=== PATIENT | male | born 1980 | race Caucasian/White ===

== ENCOUNTER → 2018-03-03 | Outpatient (CLI) | payer SELFPAY | LOC: RAD 08:42 | PROVIDERS: ATTEND Nurse Practitioner Family | DX: M25.561 Pain in right knee (principal); Z53.8 Procedure and treatment not carried out for other reasons ==

== ENCOUNTER → 2018-03-07 | Outpatient (CLI) | payer OTHER ==
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
== END | disposition home or self-care (01) ==
LOC: RAD 16:12
PROVIDERS: ATTEND Nurse Practitioner Family
DX: S83.411A Sprain of medial collateral ligament of right knee, initial encounter (principal); S70.11XA Contusion of right thigh, initial encounter
CPT/HCPCS: 73721

== ENCOUNTER → 2019-01-22 | Outpatient (CLI) | payer BC, OTHER ==
[~2019-01-22] MED LIST: CATHETER FLUSH 10 ML SYR IV PRN; HOLD METFORMIN - RECEIVED CONTRAST 20 ML VIAL IV SCH; IOHEXOL 350 MG/ML 100 ML (OMNIPAQUE 350) VIAL IV ONE; NS 100 ML (IVPB) BAG IV ONE
--- NOTE | 2019-01-22 16:50 | Diagnostic Imaging Report ---
PROCEDURE: CT pelvis with contrast. TECHNIQUE: Oral and intravenous contrast were administered with pelvic CT performed. Auto Exposure Controls were utilized during the CT exam to meet ALARA standards for radiation dose reduction. INDICATION: Dysuria. FINDINGS: The bowel gas pattern is nonspecific. Bladder is grossly normal in appearance. There is no pelvic mass, adenopathy or free fluid. There is no ascites. No focal inflammatory changes. There are mild degenerative changes in the spine. IMPRESSION: Unremarkable limited CT pelvis. Dictated by: Dictated on workstation # [id number]
--- NOTE | 2019-01-22 20:05 | Diagnostic Imaging Report ---
INDICATION: Dysuria, history of orchiopexy. FINDINGS: Areas of left-sided scrotal skin distortion are unchanged from prior. Given the history, this may be scarring from prior surgery. Testicular parenchyma itself appears unremarkable bilaterally. No evidence for testicular mass, torsion, or orchitis. An incidental left-sided epididymal head cyst is 1.4 cm. IMPRESSION: Intrascrotal contents unremarkable with benign epididymal head cyst. Areas of scrotal skin distortion on the left superiorly are unchanged from prior and probably scarring given previous surgery. There is no obvious change when compared with exam performed in 2009. Dictated by: Dictated on workstation # [id number]
== END ==
LOC: RAD 14:20
PROVIDERS: ATTEND Nurse Practitioner Community Health
DX: A63.0 Anogenital (venereal) warts (principal); N50.3 Cyst of epididymis
CPT/HCPCS: 72193; 76870

== ENCOUNTER → 2019-02-06 | Outpatient (CLI) | payer BC ==
[2019-02-06 16:15] LABS: BILIRUBIN,URINE NEGATIVE (NEGATIVE); CLARITY,URINE SLIGHTLY CLOUDY; COLOR,URINE YELLOW; GLUCOSE, URINE (UA) NEGATIVE (NEGATIVE); KETONES,URINE NEGATIVE (NEGATIVE); LEUKOCYTE ESTERASE ,URINE NEGATIVE (NEGATIVE); NITRITE,URINE NEGATIVE (NEGATIVE); PH,URINE 7 (5-9); PROTEIN,URINE NEGATIVE (NEGATIVE); UROBILINOGEN,URINE NORMAL (NORMAL)
[2019-02-06 16:40] LABS: AMORPHOUS SEDIMENT,UR LARGE AMOR PHOSPHATE /LPF; BACTERIA,URINE NEGATIVE /HPF; RBC,URINE RARE /HPF
== END ==
LOC: LAB 15:44
PROVIDERS: ATTEND Urology
DX: N41.9 Inflammatory disease of prostate, unspecified (principal); N46.9 Male infertility, unspecified
CPT/HCPCS: 81000

== ENCOUNTER → 2019-05-27 | Outpatient (CLI) | payer BC ==
--- NOTE | 2019-05-27 12:11 | Diagnostic Imaging Report ---
EXAMINATION: Magnetic resonance imaging of the left knee without intravenous contrast. DATE: May 27, 2019. COMPARISON: None. INDICATION: 38-year-old male, left knee pain. TECHNIQUE: Multiplanar, multisequence noncontrast enhanced MR imaging was accomplished. FINDINGS: MENISCI: There is a multidirectional complex tear involving the body and posterior horn of the medial meniscus extending near the posterior root attachment. The tear includes involvement of the very peripheral aspect of the body and posterior horn of the medial meniscus. There is no associated parameniscal cyst. There is no medial meniscal extrusion. The lateral meniscus is intact. LIGAMENTS AND TENDONS: The anterior and posterior cruciate ligaments are intact. The medial collateral ligament is intact. The iliotibial band, mid third lateral capsular ligament, fibular collateral ligament, biceps femoris tendon, and conjoined tendon are intact. The quadriceps tendon and patella ligament are intact. JOINT: There is a cartilage fissure involving the very posterior margin of the lateral femoral condyle with a small underlying subchondral cyst. The additional articular cartilage is intact. There is a trace knee joint effusion without intra-articular body or synovitis. BONE: There is edema-like signal in the medial aspect of the medial tibial plateau and adjacent medial femoral condyle, most likely reflecting small bone contusions. The additional bone marrow signal is unremarkable. BURSAE AND SOFT TISSUES: There is minimal fluid in the popliteal fossa without sizable Hunter's cyst. There is nonspecific subcutaneous edema medially near the level of the femorotibial articulation which could relate to a soft tissue contusion. IMPRESSION: 1. Complex multidirectional tear involving the body and posterior horn of the medial meniscus without parameniscal cyst or medial meniscal extrusion. 2. Intact lateral meniscus. 3. Intact anterior and posterior cruciate ligaments. Additional ligaments and tendons are intact. 4. Very minimal lateral compartment osteoarthritis. Trace knee joint effusion without synovitis or intra-articular body. 5. Very small bone contusions involving the medial aspects of the medial tibial plateau and adjacent medial femoral condyle. Dictated by: Dictated on workstation # [id number]
== END ==
LOC: RAD 07:37
PROVIDERS: ATTEND Nurse Practitioner Community Health
DX: S83.232A Complex tear of medial meniscus, current injury, left knee, initial encounter (principal); S80.12XA Contusion of left lower leg, initial encounter; G89.29 Other chronic pain; M25.462 Effusion, left knee; X58.XXXA Exposure to other specified factors, initial encounter
CPT/HCPCS: 73721

== ENCOUNTER → 2019-05-27 | Outpatient (CLI) | payer BC ==
--- NOTE | 2019-05-27 08:16 | Diagnostic Imaging Report ---
INDICATION: Pre-MRI screening. Time of exam: 8:07 AM No radiopaque orbital foreign bodies are detected. IMPRESSION: No radiopaque orbital foreign bodies are detected. Dictated by: Dictated on workstation # [id number]
== END ==
LOC: RAD 07:52
PROVIDERS: ATTEND Pediatrics
DX: Z01.818 Encounter for other preprocedural examination (principal); G89.29 Other chronic pain

== ENCOUNTER 2020-11-10 05:40 | Outpatient (CLI) | payer BC ==
[~2020-11-10] VITALS: Ht 182.9 cm; Wt 98.8 kg
== END 2020-11-10 14:35 | disposition home or self-care (01) ==
LOC: PREOP 05:40
PROVIDERS: ATTEND Surgery
DX: Z01.818 Encounter for other preprocedural examination (principal)

== ENCOUNTER 2020-12-22 12:46 | Emergency (ER) | payer OTHER ==
[~2020-12-22] VITALS: Ht 182 cm; Wt 100.0 kg
[2020-12-22 13:35] LABS: BILIRUBIN,URINE NEGATIVE (NEGATIVE); CLARITY,URINE CLEAR; COLOR,URINE YELLOW; GLUCOSE, URINE (UA) NEGATIVE (NEGATIVE); KETONES,URINE NEGATIVE (NEGATIVE); LEUKOCYTE ESTERASE ,URINE NEGATIVE (NEGATIVE); NITRITE,URINE NEGATIVE (NEGATIVE); PROTEIN,URINE TRACE (NEGATIVE)
[2020-12-22] MEDS ORDERED: LIDOCAINE 1% INJ 20 ML 20 ML VIAL ONE (13:39)
[2020-12-22] MEDS ORDERED: LIDOCAINE 1% INJ 20 ML 20 ML VIAL INJ ONE (13:45)
[2020-12-22 13:55] LABS: BASOPHILS # (AUTO) 0.1 10^3/uL (0.0-0.1); BASOPHILS % (AUTO) 0 % (0-10); EOSINOPHILS # (AUTO) 0.1 10^3/uL (0.0-0.3); EOSINOPHILS % (AUTO) 1 % (0-10); HEMATOCRIT 47 % (40-54); HEMOGLOBIN 15.8 g/dL (13.3-17.7); LYMPHOCYTES # (AUTO) 2.3 10^3/uL (1.0-4.0); LYMPHOCYTES % (AUTO) 19 % (12-44); MEAN CORPUSCULAR HEMOGLOBIN 30 pg (25-34); MEAN CORPUSCULAR HGB CONC 34 g/dL (32-36); MEAN CORPUSCULAR VOLUME 88 fL (80-99); MEAN PLATELET VOLUME 9.6 fL (9.0-12.2); MONOCYTES # (AUTO) 0.9 10^3/uL (0.0-1.0); MONOCYTES % (AUTO) 7 % (0-12); NEUTROPHILS # (AUTO) 8.7 10^3/uL (1.8-7.8); NEUTROPHILS % (AUTO) 72 % (42-75); PLATELET COUNT 268 10^3/uL (130-400); WHITE BLOOD COUNT 12.1 10^3/uL (4.3-11.0)
[2020-12-22 14:03] LABS: ALBUMIN 4.4 GM/DL (3.2-4.5)
[2020-12-22 14:04] LABS: POTASSIUM 3.3 MMOL/L (3.6-5.0)
[2020-12-22 14:05] LABS: CALCIUM 9.3 MG/DL (8.5-10.1)
[2020-12-22 14:05] LABS: AMPHETAMINE SCREEN, URINE POSITIVE (NEGATIVE); BARBITURATE SCREEN URINE NEGATIVE (NEGATIVE); BENZODIAZEPINES SCREEN URINE NEGATIVE (NEGATIVE); CANNABINOID SCREEN, URINE POSITIVE (NEGATIVE); COCAINE SCREEN URINE NEGATIVE (NEGATIVE); METHADONE STAT NEGATIVE (NEGATIVE); METHAMPHETAMINE SCREEN URINE S POSITIVE (NEGATIVE); OPIATE SCREEN URINE NEGATIVE (NEGATIVE); OXYCODONE STAT NEGATIVE (NEGATIVE); PROPOXYPHENE STAT NEGATIVE (NEGATIVE); TRICYCLIC ANTIDEPRESSANTS SCRE NEGATIVE (NEGATIVE)
[2020-12-22 14:06] LABS: TOTAL PROTEIN 7.5 GM/DL (6.4-8.2)
[2020-12-22 14:08] LABS: BILIRUBIN,TOTAL 0.9 MG/DL (0.1-1.0)
[2020-12-22 14:10] LABS: CREATININE SERUM 1.17 MG/DL (0.60-1.30)
--- NOTE | 2020-12-22 14:11 | Diagnostic Imaging Report ---
CT ABD/PELVIS WO(KIDNEY STONE) TECHNIQUE: Unenhanced CT imaging of the abdomen and pelvis was performed. 2-D reformats are created and submitted for interpretation. Automatic exposure controls were utilized to optimize patient dose. INDICATION: Right-sided flank pain after prep for colonoscopy. COMPARISON: CT pelvis from 01/22/2019 FINDINGS: Evaluation of the abdominal viscera is mildly limited without contrast. Lower chest: Subpleural groundglass opacities in the dependent aspect of both lung bases. Peritoneum: No free intraperitoneal air or fluid. Liver and biliary system: Marked hypoattenuation liver is indicative of severe hepatic steatosis. The liver measures 17.5 cm in length. The gallbladder is normal. No biliary duct dilation. Spleen and Pancreas: Spleen is normal. Unenhanced pancreas is grossly normal. Adrenals: Normal. tract: There are 4 nonobstructing right-sided renal stones ranging in size from 2-4 mm. Additionally, there is a 4 mm stone at the right UVJ causing minimal dilation of the right ureter but no hydronephrosis. There are few punctate 1 to 2 mm stones in left kidney. GI tract: Stomach is fluid-filled and is without wall thickening. No bowel obstruction. No pericolonic inflammatory changes. Normal appendix. Vasculature and Lymph nodes: Normal caliber aorta. No abdominal or pelvic lymphadenopathy. Musculoskeletal: No concerning osseous lesion. IMPRESSION: 1. A 4 mm stone is located in the right UVJ and resulting mild right hydroureter but no significant hydronephrosis. 2. There are additional 2-4 mm nonobstructing bilateral renal stones. 3. Normal appendix. 4. Diffuse hepatic steatosis. 5. Groundglass opacities in lung bases are most likely due to dependent atelectasis. However, if the patient has symptoms, then infection could also give this appearance. Dictated by: Dictated on workstation # [id number]
[2020-12-22 14:14] LABS: BACTERIA,URINE NEGATIVE /HPF; WBC,URINE 0-2 /HPF
[2020-12-22] MEDS ORDERED: KCL 10 MEQ TAB (MICRO K) PO ONE (15:00)
[2020-12-22] MEDS ORDERED: LACTATED RINGERS 1,000 ML IV ONE (15:15)
--- NOTE | 2020-12-22 15:44 | ED Abdominal Pain ---
General Chief Complaint: Abdominal/GI Problems Stated Complaint: R FLANK PAIN Nursing Triage Note: TO ED PER EMS FROM HOME WAS TO HAVE COLOOSCOPY TODAY FINISHED PREP AND WAS ON BATHROOM STOOL WHNE ONSET OF R SIDE PAIN. PATIENT ADMIT TO BEING OLD IV DRUG USER X 10 YEARS AGO. DOES CON"T SMOKE METH DAILY WITH. MARIJ[employer]NA Source of Information: Patient Exam Limitations: No Limitations History of Present Illness Date Seen by Provider: Dec 22, 2020 Time Seen by Provider: 13:10 Initial Comments Keto this 40-year-old man presents to the emergency room via EMS with complaints of abrupt onset of right flank pain radiating to the right groin that occurred while he was performing his colonoscopy prep today. He was to have a colonoscopy around noon. Symptoms sound suggestive of ureteral stone. He has no history of kidney stones. 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 He reports his last use was 3 days ago. Pain was much im proved while in route to the ER. Patient reports his colonoscopy today was due to long history of dark stools and intermittent abdominal pain. Allergies and Home Medications Allergies Coded Allergies: No Known Drug Allergies (Unverified , 02/24/11) Patient Home Medication List Home Medication List Reviewed: Yes Review of Systems Review of Systems Constitutional: no symptoms reported EENTM: No Symptoms Reported Respiratory: No Symptoms Reported Cardiovascular: No Symptoms Reported Gastrointestinal: See HPI Genitourinary: See HPI Musculoskeletal: no symptoms reported Skin: no symptoms reported Psychiatric/Neurological: See HPI Endocrine: No Symptoms Reported Hematologic/Lymphatic: No Symptoms Reported Past Cuiwagj-Tpszci-Ioogpt Hx Patient Social History Tobacco Use?: Yes Tobacco type used: Cigarettes Smoking Status: Current Everyday Smoker Substance use?: Yes Substance type: Amphetamines, Methamphetamine, Marijuana Seasonal Allergies Seasonal Allergies: No Past Medical History Surgery/Hospitalization HX: B/P MEDS Surgeries: Yes Orthopedic Respiratory: No Cardiac: Yes (DOES NOT TAKE MEDS FOR HYPERTENSION DUE TO COST) Hypertension Neurological: No Genitourinary: No Gastrointestinal: No Musculoskeletal: No (TORN MEDIAL MENISCUS RIGHT KNEE) Endocrine: No HEENT: No Cancer: No Psychosocial: Yes (Long-term methamphetamine use) Blood Disorders: No Physical Exam Vital Signs Vital Signs - First Documented 12/22/20 13:04 Temp 36.4 Pulse 86 Resp 18 B/P (MAP) 142/103 (116) Pulse Ox 100 O2 Delivery Room Air Capillary Refill : Less Than 3 Seconds Height/Weight/BMI Height: '" Weight: lbs. oz. kg; 30.00 BMI Method:Stated General Appearance: WD/WN, no apparent distress HEENT: normal ENT inspection Neck: normal inspection Respiratory: lungs clear, normal breath sounds, no respiratory distress Cardiovascular: regular rate, rhythm, no edema, no murmur Gastrointestinal: normal bowel sounds, non tender (No significant tenderness to palpation), soft Extremities: normal inspection, no pedal edema Neurologic/Psychiatric: plan checker II-XII nml as tested, no motor/sensory deficits, alert, normal mood/affect, oriented x 3 Skin: normal color, warm/dry Progress/Results/Core Measures Results/Orders Lab Results Laboratory Tests Test 12/22/20 13:28 12/22/20 13:46 Range/Units Urine Color YELLOW Urine Clarity CLEAR Urine pH 7.0 5-9 Urine Specific [place] 1.020 1.016-1.022 Urine Protein TRACE H NEGATIVE Urine Glucose (UA) NEGATIVE NEGATIVE Urine Ketones NEGATIVE NEGATIVE Urine Nitrite NEGATIVE NEGATIVE Urine Bilirubin NEGATIVE NEGATIVE Urine Urobilinogen 0.2 < = 1.0 MG/DL Urine Leukocyte Esterase NEGATIVE NEGATIVE Urine RBC (Auto) 3+ H NEGATIVE Urine RBC 10-25 H /HPF Urine WBC 0-2 /HPF Urine Crystals NONE /LPF Urine Bacteria NEGATIVE /HPF Urine Casts NONE /LPF Urine Mucus SMALL H /LPF Urine Culture Indicated NO Urine Opiates Screen NEGATIVE NEGATIVE Urine Oxycodone Screen NEGATIVE NEGATIVE Urine Methadone Screen NEGATIVE NEGATIVE Urine Propoxyphene Screen NEGATIVE NEGATIVE Urine Barbiturates Screen NEGATIVE NEGATIVE Ur Tricyclic Antidepressants Screen NEGATIVE NEGATIVE Urine Phencyclidine Screen NEGATIVE NEGATIVE Urine Amphetamines Screen POSITIVE H NEGATIVE Urine Methamphetamines Screen POSITIVE H NEGATIVE Urine Benzodiazepines Screen NEGATIVE NEGATIVE Urine Cocaine Screen NEGATIVE NEGATIVE Urine Cannabinoids Screen POSITIVE H NEGATIVE White Blood Count 12.1 H 4.3-11.0 10^3/uL Red Blood Count 5.32 4.30-5.52 10^6/uL Hemoglobin 15.8 13.3-17.7 g/dL Hematocrit 47 40-54 % Mean Corpuscular Volume 88 80-99 fL Mean Corpuscular Hemoglobin 30 25-34 pg Mean Corpuscular Hemoglobin Concent 34 32-36 g/dL Red Cell Distribution Width 12.0 10.0-14.5 % Platelet Count 268 130-400 10^3/uL Mean Platelet Volume 9.6 9.0-12.2 fL Immature Granulocyte % (Auto) 0 % Neutrophils (%) (Auto) 72 42-75 % Lymphocytes (%) (Auto) 19 12-44 % Monocytes (%) (Auto) 7 0-12 % Eosinophils (%) (Auto) 1 0-10 % Basophils (%) (Auto) 0 0-10 % Neutrophils # (Auto) 8.7 H 1.8-7.8 10^3/uL Lymphocytes # (Auto) 2.3 1.0-4.0 10^3/uL Monocytes # (Auto) 0.9 0.0-1.0 10^3/uL Eosinophils # (Auto) 0.1 0.0-0.3 10^3/uL Basophils # (Auto) 0.1 0.0-0.1 10^3/uL Immature Granulocyte # (Auto) 0.1 0.0-0.1 10^3/uL Sodium Level 141 135-145 MMOL/L Potassium Level 3.3 L 3.6-5.0 MMOL/L Chloride Level 103 98-107 MMOL/L Carbon Dioxide Level 26 21-32 MMOL/L Anion Gap 12 5-14 MMOL/L Blood Urea Nitrogen 10 7-18 MG/DL Creatinine 1.17 0.60-1.30 MG/DL Estimat Glomerular Filtration Rate 70 BUN/Creatinine Ratio 9 Glucose Level 81 70-105 MG/DL Calcium Level 9.3 8.5-10.1 MG/DL Corrected Calcium 9.0 8.5-10.1 MG/DL Total Bilirubin 0.9 0.1-1.0 MG/DL Aspartate Amino Transf (AST/SGOT) 59 H 5-34 U/L Alanine Aminotransferase (ALT/SGPT) 99 H 0-55 U/L Alkaline Phosphatase 73 40-136 U/L Total Protein 7.5 6.4-8.2 GM/DL Albumin 4.4 3.2-4.5 GM/DL Lipase 27 8-78 U/L My Orders Orders - KALYN TREVIZO MD Cbc With Automated Diff (12/22/20 13:20) Comprehensive Metabolic Panel (12/22/20 13:20) Lipase (12/22/20 13:20) Ua Culture If Indicated (12/22/20 13:20) Ed Iv/Invasive Line Start (12/22/20 13:20) Ct Abd/Pelvis Wo(Kidney Stone) (12/22/20 13:22) Drug Screen Stat (Urine) (12/22/20 13:24) Lidocaine 1% Inj 20 Ml (Xylocaine 1% Inj (12/22/20 13:39) Potassium Chloride (Tablet) (Klor Con Ta (12/22/20 15:00) Lactated Ringers (Lr 1000 Ml Iv Solution (12/22/20 15:15) Abdomen/Kub 1view (12/22/20 15:41) Medications Given in ED Current Medications Medications Dose Ordered Sig/Yogi Route Start Time Stop Time Status Last Admin Dose Admin Lactated Ringer's 1,000 ml @ 0 mls/hr Q0M ONCE IV 12/22/20 15:15 12/22/20 15:16 DC 12/22/20 15:16 1,000 MLS/HR Lidocaine HCl 2 ml ONCE ONCE INJ 12/22/20 13:45 12/22/20 13:46 DC 12/22/20 14:07 2 ML Potassium Chloride 20 meq ONCE ONCE PO 12/22/20 15:00 12/22/20 15:01 DC 12/22/20 15:07 20 MEQ Vital Signs/I&O 12/22/20 12/22/20 13:04 16:06 Temp 36.4 Pulse 86 85 Resp 18 18 B/P (MAP) 142/103 (116) 136/93 Pulse Ox 100 100 O2 Delivery Room Air Room Air Blood Pressure Mean: 116 Progress Progress Note : Progress Note IV was established under ultrasound guidance by Andrew Guillen NP. Further evaluation was sought with CT of the abdomen and pelvis revealing a 4 mm right UVJ stone. Labs were relatively unremarkable except potassium was mildly low. Potassium was replaced orally. Unfortunately, patient cannot proceed with the colonoscopy as he tested positive for methamphetamine. Dr. Martines stated he would not be able to proceed with endoscopy with a positive drug screen. See discharge instructions for further discussion. Diagnostic Imaging Diagonstic Imaging: CT Plain Films/CT/US/NM/MRI: abdomen, pelvis Comments CT abdomen and pelvis viewed by me and report reviewed. See report below: NAME: MARYSE BARRY MED REC#: [id number] PT STATUS: DEP ER : 1980 PHYSICIAN: KALYN TREVIZO MD ADMIT DATE: 12/22/20/ER Signed Date of Exam:12/22/20 CT ABD/PELVIS WO(KIDNEY STONE) CT ABD/PELVIS WO(KIDNEY STONE) TECHNIQUE: Unenhanced CT imaging of the abdomen and pelvis was performed. 2-D reformats are created and submitted for interpretation. Automatic exposure controls were utilized to optimize patient dose. INDICATION: Right-sided flank pain after prep for colonoscopy. COMPARISON: CT pelvis from 01/22/2019 FINDINGS: Evaluation of the abdominal viscera is mildly limited without contrast. Lower chest: Subpleural groundglass opacities in the dependent aspect of both lung bases. Peritoneum: No free intraperitoneal air or fluid. Liver and biliary system: Marked hypoattenuation liver is indicative of severe hepatic steatosis. The liver measures 17.5 cm in length. The gallbladder is normal. No biliary duct dilation. Spleen and Pancreas: Spleen is normal. Unenhanced pancreas is grossly normal. Adrenals: Normal. tract: There are 4 nonobstructing right-sided renal stones ranging in size from 2-4 mm. Additionally, there is a 4 mm stone at the right UVJ causing minimal dilation of the right ureter but no hydronephrosis. There are few punctate 1 to 2 mm stones in left kidney. GI tract: Stomach is fluid-filled and is without wall thickening. No bowel obstruction. No pericolonic inflammatory changes. Normal appendix. Vasculature and Lymph nodes: Normal caliber aorta. No abdominal or pelvic lymphadenopathy. Musculoskeletal: No concerning osseous lesion. IMPRESSION: 1. A 4 mm stone is located in the right UVJ and resulting mild right hydroureter but no significant hydronephrosis. 2. There are additional 2-4 mm nonobstructing bilateral renal stones. 3. Normal appendix. 4. Diffuse hepatic steatosis. 5. Groundglass opacities in lung bases are most likely due to dependent atelectasis. However, if the patient has symptoms, then infection could also give this appearance. Dictated by: Dictated on workstation # [id number] Dict: 12/22/20 1403 Trans: 12/22/20 1653 [facility] [id number] Interpreted by: MICHELLE KNIGHT MD Electronically signed by: MICHELLE KNIGHT MD 12/22/20 1654 Diagonstic Imaging: Xray Plain Films/CT/US/NM/MRI: abdomen, pelvis Comments NAME: MARYSE BARRY [facility] REC#: [id number] PT STATUS: DEP ER : 1980 PHYSICIAN: KALYN TREVIZO MD ADMIT DATE: 12/22/20/ER Signed Date of Exam:12/22/20 ABDOMEN/KUB 1VIEW REASON FOR EXAM: Abdominal pain. COMPARISON: CT performed earlier in the same day. TECHNIQUE: Two views of the abdomen. FINDINGS: Nondilated air-filled loops of small bowel are noted in the upper mid abdomen. No large collection of free intraperitoneal air is seen. Scattered small amounts of gas and fecal material are present in the colon. No abnormal extraosseous calcifications are present. The osseous structures are age-appropriate. IMPRESSION: Air-filled loops of nondilated small bowel in the upper mid abdomen, favored to represent ileus. Early small bowel obstruction could also give this appearance. Recommend continued follow-up as indicated. Dictated by: Dictated on workstation # [id number] Dict: 12/22/20 1602 Trans: 12/22/20 1608 [id number] Interpreted by: NERI GUDINO DO Electronically signed by: NERI GUDINO DO 12/22/20 1608 Departure Impression Primary Impression: Right ureteral stone Additional Impression: Hypokalemia Disposition: 01 HOME, SELF-CARE Condition: Improved Departure-Patient Inst. Decision time for Depature: 15:42 Referrals: [facility] (PCP) Primary Care Physician MORA DON (Family) Primary Care Physician Patient Instructions: Kidney Stones in Adults Add. Discharge Instructions: Follow-up with your primary care provider soon as possible. Drink plenty of clear liquids to flush out the ureteral stone. If you have a resurgence of pain, you may take ibuprofen 600 mg and Tylenol (acetaminophen) up to 1000 mg every 6 hours as needed. Call with questions or concerns. Strain your urine and bring any stones collected to your follow-up appointment. Return to the ER if you have worsening symptoms. Follow-up with Dr. Martines soon as possible to reschedule your colonoscopy. All discharge instructions reviewed with patient and/or family. Voiced understanding. Copy Copies To 1: COLLETTE MARTINES DO Copies To 2: MAYRA JOHNSON DO KALYN TREVIZO MD Dec 22, 2020 15:44
[2020-12-22 16:06] VITALS: BP 136/93
--- NOTE | 2020-12-22 16:06 | Diagnostic Imaging Report ---
REASON FOR EXAM: Abdominal pain. COMPARISON: CT performed earlier in the same day. TECHNIQUE: Two views of the abdomen. FINDINGS: Nondilated air-filled loops of small bowel are noted in the upper mid abdomen. No large collection of free intraperitoneal air is seen. Scattered small amounts of gas and fecal material are present in the colon. No abnormal extraosseous calcifications are present. The osseous structures are age-appropriate. IMPRESSION: Air-filled loops of nondilated small bowel in the upper mid abdomen, favored to represent ileus. Early small bowel obstruction could also give this appearance. Recommend continued follow-up as indicated. Dictated by: Dictated on workstation # [id number]
== END 2020-12-22 16:06 | disposition home or self-care (01) ==
LOC: EDUNIT# 12:46 → ER 12:47
DX: N20.1 Calculus of ureter (principal); E87.6 Hypokalemia; I10 Essential (primary) hypertension; F17.210 Nicotine dependence, cigarettes, uncomplicated
CPT/HCPCS: 36415; 74018; 74176; 80053; 80306; 81000; 83690; 85025; 96360

== ENCOUNTER 2023-04-25 01:54 | Emergency (ER) | payer SELFPAY ==
[~2023-04-25] VITALS: Ht 182.8 cm; Wt 102.0 kg
[2023-04-25 02:18] VITALS: BP 152/111
--- NOTE | 2023-04-25 02:31 | ED General ---
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 PER MED RECONCILIATION, PT HAS NOT FILLED RX FOR LISINOPRIL SINCE 08/28/22. HE HAD BEEN RECEIVING RX'S FOR VIAGRA UNTIL 08/28/22. PT SMOKES 1-3 PPD, DRINKS ALCOHOL ON REGULAR BASIS, ADMITS TO DAILY THC USE, AND HISTORY OF IV METH USE PCP: DALIA. Allergies and Home Medications Allergies Coded Allergies: No Known Drug Allergies (Unverified , 02/24/11) Patient Home Medication List Home Medication List Reviewed: Yes Review of Systems Review of Systems Constitutional: see HPI, diaphoresis, dizziness EENTM: no symptoms reported Respiratory: no symptoms reported Cardiovascular: no symptoms reported Gastrointestinal: no symptoms reported Genitourinary: no symptoms reported Musculoskeletal: no symptoms reported Skin: no symptoms reported Psychiatric/Neurological: See HPI; Denies Headache, Denies Numbness, Denies Paresthesia, Denies Tingling, Denies Tremors, Denies Weakness Hematologic/Lymphatic: No Symptoms Reported Immunological/Allergic: no symptoms reported Past Hrulfcp-Qcmvak-Ygluuc Hx Patient Social History Tobacco Use?: Yes Tobacco type used: Cigarettes Smoking Status: Current Everyday Smoker Substance use?: Yes Substance type: Amphetamines, Methamphetamine, Marijuana Substance frequency: Daily Alcohol Use?: Yes Alcohol type: Hard Liquor Alcohol Frequency: Daily Seasonal Allergies Seasonal Allergies: No Past Medical History Surgery/Hospitalization HX: B/P MEDS Surgeries: Yes (KNEE SURGERY X 2 OR 3; BILAT TESTICULAR SURGERY; L WRIST) Orthopedic, Testicular Respiratory: No Cardiac: Yes (REFUSES TO TAKE MEDICATIONS) Hypertension Neurological: No Reproductive Disorders: Yes (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 ) Genitourinary: Yes Kidney Stones Gastrointestinal: No Musculoskeletal: Yes (KNEE SURGERIES; LEFT WRIST SURGERY) Endocrine: No HEENT: No Cancer: No Psychosocial: Yes (Long-term methamphetamine use; POLYSUBSTANCE ABUSE) Blood Disorders: No Family Medical History SOCIAL HISTORY: -SMOKES 1-3 PPD -ETOH--DRINKS WHISKEY DAILY--DOES NOT ELABORATE ON HOW MUCH -DRUGS--THC DAILY, + IV METH USE DAILY PAST SURGICAL HISTORY: -KNEE SURGERY X 2 OR 3 -LEFT WRIST SURGERY -BILATERAL TESTICULAR SURGERY FOR UNDESCENDED TESTICLES, CHILD Physical Exam Vital Signs Vital Signs - First Documented 04/25/23 02:18 Temp 35.2 Pulse 95 Resp 20 B/P (MAP) 152/111 (125) Pulse Ox 99 O2 Delivery Room Air Capillary Refill : Height, Weight, BMI Height: '" Weight: lbs. oz. kg; 30.00 BMI Method:Stated General Appearance: No Apparent Distress, WD/WN, Other (DIRTY, MALODOROUS, SPEECH IS VERY RAPID AND MUMBLED AND TALKS NON-STOP AT LENGTH, GAIT SLIGHTLY UNSTEADY--APPEARS TO BE UNDER THE INFLUENCE OF SOME SUBSTANCE/S) HEENT: PERRL/EOMI, Other (POOR DENTITION) Respiratory: Normal Breath Sounds, No Accessory Muscle Use, No Respiratory Distress Cardiovascular: Regular Rate, Rhythm, No Murmur Extremity: Normal Inspection Neurologic/Psychiatric: Alert, Oriented x3, No Motor/Sensory Deficits, management lead II- XII Norm as Tested Skin: Normal Color, Warm/Dry, Other (OLD SCARS/TRACK MCKINNEY IN BILATERAL AC SPACES) Progress/Results/Core Measures Suspected Sepsis SIRS Temperature: Pulse: Respiratory Rate: Blood Pressure / Mean: Results/Orders My Orders Orders - BRINA HOOKS DO Ed Iv/Invasive Line Start (04/25/23 02:21) Ekg Tracing (04/25/23 02:21) Monitor-Rhythm Ecg Trace Only (04/25/23 02:21) Alcohol (04/25/23 02:21) Bnp Hill (04/25/23 02:21) Cbc And Automated Diff (04/25/23 02:21) Comprehensive Metabolic Panel (04/25/23 02:21) Drug Screen Stat (Urine) (04/25/23 02:21) Magnesium (04/25/23 02:21) Protime With Inr (04/25/23 02:21) Partial Thromboplastin Time (04/25/23 02:21) Ua Culture If Indicated (04/25/23 02:21) Troponin I Sumi (04/25/23 02:21) Vital Signs/I&O 04/25/23 02:18 Temp 35.2 Pulse 95 Resp 20 B/P (MAP) 152/111 (125) Pulse Ox 99 O2 Delivery Room Air Capillary Refill : Progress Note : Progress Note VITALS ON ARRIVAL: TEMP 35.2, HR 95, RR 20, BP 152/111, O2 SAT 99% ON ROOM AIR EKG IS NORMAL. MULTIPLE ATTEMPTS TO OBTAIN IV ACCESS UNSUCCESSFUL--VEINS SIGNIFICANTLY SCLEROSED FROM IV DRUG USE. PT IS ALSO VERY UNCOOPERATIVE FOR IV ATTEMPTS, AND CURSING AND PULLING ARM AWAY 0255--LEAVING AMA. STATES HE FEELS FINE NOW, AND IS REFUSING ANY MORE IV ATTEMPTS. AMA PAPERS SIGNED. GAIT STEADY AT DISMISSAL REVIEWED PRIOR RECORDS, INCLUDING ER VISITS, ADMITS/H&P'S/DISCHARGE SUMMARIES, TESTS/PROCEDURES ECG Initial ECG Impression Date: Apr 25, 2023 Initial ECG Impression Time: 02:50 Initial ECG Rate: 88 Initial ECG Rhythm: Normal Sinus Initial ECG Intervals: Normal Initial ECG Impression: Normal Initial ECG Comparisson: No Previous ECG Available Comment INTERPRETED BY ME Departure Impression Primary Impression: Left against medical advice Disposition: 07 AGAINST MEDICAL ADVICE Condition: Against Medical Advice Departure-Patient Inst. Referrals: [facility] (PCP) Primary Care Physician MORA DON (Family) Primary Care Physician BRINA HOOKS DO Apr 25, 2023 02:31
== END 2023-04-25 02:56 | disposition left against medical advice (07) ==
LOC: EDUNIT# 01:54 → ER 01:57
DX: R42 Dizziness and giddiness (principal); F17.210 Nicotine dependence, cigarettes, uncomplicated
CPT/HCPCS: 93005; 93041